=== PATIENT | female | born 1965 | race Caucasian/White ===

== ENCOUNTER 2016-07-28 18:00 | Inpatient (IN) | payer SELFPAY ==
[~2016-07-28] VITALS: Ht 157.5 cm; Wt 39.9 kg
[2016-07-28 18:29] VITALS: BP 90/63
--- NOTE | 2016-07-28 19:45 | NUR ---
PATIENT AMBULATED TO ER BED 5.
--- NOTE | 2016-07-28 19:51 | NUR ---
51Y F PRESENTED TO ER C/O OF SOMETHING PROTRUDING IN RT SIDE OF HER NECK THAT AFFECTS HER SWALLOWING . DENIES PAIN, NO N/V NOTED.
--- NOTE | 2016-07-28 19:55 | NUR ---
Patient being evaluated by physician at bedside.
[2016-07-28] MEDS ORDERED: NACL 0.9% 1,000 ML IV ONE (21:40)
[2016-07-28 22:02] LABS: BASOPHILS % (AUTO) 0.6 % (0.0-2.0); EOSINOPHILS # (AUTO) 0.1 K/uL (0-0.4); EOSINOPHILS % (AUTO) 1.2 % (0.0-4.0); HEMATOCRIT 27.2 % (36-48); HEMOGLOBIN 8.6 g/dL (12.0-16.0); LYMPHOCYTES # (AUTO) 1.4 K/uL (2.5-16.5); LYMPHOCYTES % (AUTO) 25.7 % (20.5-51.1); MEAN CORPUSCULAR HEMOGLOBIN 32 pg (27-31); MEAN CORPUSCULAR HGB CONC 32 g/dL (33-37); MEAN CORPUSCULAR VOLUME 103 fL (80-94); MONOCYTES # (AUTO) 0.1 K/uL (0.8-1.0); MONOCYTES % (AUTO) 1.8 % (1.7-9.3); NEUTROPHILS # (AUTO) 3.8 K/uL (1.8-7.7); NEUTROPHILS % (AUTO) 70.7 % (42.2-75.2); PLATELET COUNT (AUTO) 282 K/uL (140-450); RED BLOOD CELL COUNT(AUTO) 2.65 MIL/uL (4.20-5.40); RED CELL DISTRIBUTION WIDTH 19.3 % (11.6-13.7); WHITE BLOOD COUNT (AUTO) 5.5 K/uL (4.8-10.8)
[2016-07-28 22:13] LABS: ANION GAP 11.6 (8-16); CALCIUM 8.6 mg/dL (8.5-10.1); CARBON DIOXIDE 27.3 mmol/L (21-32); CREATININE 0.5 mg/dL (0.6-1.3); POTASSIUM 3.9 mmol/L (3.5-5.1)
[2016-07-28 22:19] LABS: ALBUMIN 3.1 g/dL (3.4-5.0); TOTAL BILIRUBIN 1.1 mg/dL (0.0-1.0); TOTAL PROTEIN, SERUM 7.2 g/dL (6.4-8.2)
[2016-07-28 22:25] LABS: INR 1.2 (0.8-1.2); PARTIAL THROMBOPLASTIN TIME 28.6 secs (22-35.6); PROTHROMBIN TIME 11.4 secs (10.8-13.4)
[2016-07-29] MEDS ORDERED: ONDANSETRON 4 MG/2 ML VIAL IVP PRN (00:10)
[2016-07-29] MEDS ORDERED: HYDROcodone/APAP 5/325 MG 1 TAB TAB PO PRN (00:10)
[2016-07-29] MEDS ORDERED: ACETAMINOPHEN 325 MG TAB PO PRN (00:10)
[2016-07-29] MEDS: DEXT 5% /NACL 0.9% 1,000 ML IV SCH ×3 (00:10→21:08)
[2016-07-29] MEDS ORDERED: MORPHINE SULFATE 2 MG/ML SYR IVP PRN (00:10)
[2016-07-29] MEDS ORDERED: LORazepam 2 MG/ML VIAL IVP PRN (00:10)
--- NOTE | 2016-07-29 01:00 | NUR ---
RECEIVED FROM ER PER WHEELCHAIR. AWAKE AND ALERT. NO SOB. DENIES PAIN AT THIS TIME. PT. ABLE TO VERBALIZE NEEDS WELL. CARE PLANS DISCUSSED WITH HER AND CALL LIGHT EXPLAINED. IVF SITES TO LAC AND RAC. BOTH INTACT AND NO INFILTRATION NOTED. DX. OF MASS TO RIGHT SIDE OF NECK. AFEBRILE. SKIN INTACT. NO EDEMA .CTAB. PER PT. SHE LOST AROUND 10 LBS. FOR A MONTH NOW. ORIENTED TO ROOM, CARE GIVERS AND CALL LIGHT USE. IVF TO LAC # 22 INTACT AND INFUSING WITH NS AT 100 ML PER HOUR.
--- NOTE | 2016-07-29 01:02 | NUR ---
Patient will be admitted to care of DR SHELTON. Admited to [facility]. Will go to room 120. Belongings list completed. Report to [facility].
[2016-07-29 01:42] VITALS: BP 97/62
--- NOTE | 2016-07-29 02:00 | NUR ---
ORIENTED AND ALERT. REMINDED TO USE CALL LIGHT FOR HELP. "OK" NO SOB. RAPID RESPONSE MECHANISM DISCUSSED WITH HER. SEQUENTIALS BILATERALLY IN PLACE. EXPLAINED PROS AND CONS OF IT.
--- NOTE | 2016-07-29 04:32 | NUR ---
SLEEPING WELL. PT. COMFORTABLE AND NO COMPLAINTS DONE AT THIS TIME. CALL LIGHT WITH IN REACH AT BEDSIDE.
--- NOTE | 2016-07-29 06:47 | NUR ---
PATIENT HAS BEEN SCREENED AND CATEGORIZED HIGH NUTRITION RISK. PATIENT WILL BE SEEN WITHIN 1-2 DAYS OF ADMISSION. 07/29/16-07/30/16 TAMICA BARRETT MS, RDN
--- NOTE | 2016-07-29 07:30 | NUR ---
ENDORSED TO THE NEXT RN FOR CONTINUITY OF CARE. AWAKE AND ALERT. VERBALIZES NEEDS WELL. NO SOB. DENIES PAIN AT THI STIME.
--- NOTE | 2016-07-29 07:31 | NUR ---
RECEIVED SBAR REPORT AT PT BEDSIDE. PT AMBULATORY. DENIES DISCOMFORT. IV SITE PATENT AND INTACT. AAOX4. CALL LIGHT WITHIN REACH. NO S/S OF RESPIRATORY DISTRESS. WILL CONTINUE TO MONITOR.
--- NOTE | 2016-07-29 10:35 | NUR ---
PATIENT SEEN BY DR. SHELTON AT PT BEDSIDE. MD SPOKE WITH PATIENT AND DAUGHTER REGARDING PLAN OF CARE.
--- NOTE | 2016-07-29 12:00 | NUR ---
07/29/16 RD INITIAL ASSESSMENT COMPLETED PLEASE REFER TO NUTRITION ASSESSMENT UNDER CARE ACTIVITY FOR ESTIMATED NUTRITIONAL NEEDS. RD RECOMMENDATIONS: 1. CONTINUE ON REGULAR DIET APPROPRIATE AND TOLERATED PER PT. 2. RD WILL F/U 2-3 DAYS; HIGH RISK. TAMICA BARRETT, MS, RDN
--- NOTE | 2016-07-29 15:08 | NUR ---
DR. ARIAN RUIZ, COVERING FOR DR. STEWART. WILL NOTIFY FOR CONSULTATION AND QUESTIONS PER FAMILY.
[2016-07-29 16:00] VITALS: BP 96/60
[2016-07-29] MEDS ORDERED: ACETAMINOPHEN 650 MG/20.3 ML UDC PO PRN (16:15)
--- NOTE | 2016-07-29 17:00 | NUR ---
PT AMBULATORY TO BATHROOM WITH ASSIST. NO S/S OF ACUTE DISTRESS. WILL CONTINUE TO MONITOR.
[2016-07-29] MEDS: PIPERACILLIN/TAZOBACTAM 4.5 GM in DEXTROSE 5% 100 ML IV SCH (17:35)
--- NOTE | 2016-07-29 19:15 | NUR ---
SBAR REPORT GIVEN TO NIGHT NURSE AT PT BEDSIDE. PT RESTING IN BED. NO S/S OF ACUTE DISTRESS NOTED.
--- NOTE | 2016-07-29 19:17 | NUR ---
PATIENT IS CURRENTLY RESTING IN BED AWAKE ALERT ORIENTED.PATIENT DENIES PAIN AT THIS TIME.PATIENT IS WEARING HER SCD'S TO BOTH LOWER EXTREMITIES.PATIENT DENIES FEELING ANY NAUSEA.IVF INFUSING WELL IV SITE REMAINS PATENT NO INFILTRATION NOTED.CALL LIGHT WITHIN REACH WILL CONTINUE TO MONITOR.
[2016-07-29 20:35] VITALS: BP 90/58
--- NOTE | 2016-07-29 21:00 | NUR ---
Patient's Plan of Care was discussed and reviewed with HEMMING AND TACKING MACHINE OPERATOR: ADALGISA DOMINGUEZ
--- NOTE | 2016-07-29 21:08 | NUR ---
PATIENT IS CURRENTLY RESTING IN BED DENIES PAIN ,IVF INFUSING WELL, IV FOLLOW UP DONE, DENIES N/V WILL CONTINUE TO MONITOR.
--- NOTE | 2016-07-29 22:09 | NUR ---
PATIENT STABLE SLEEPING IN BED NO PAIN OR DISCOMFORT NO DISTRESS WILL CONTINUE TO MONITOR.
[2016-07-30] VITALS: BP 91/55
[2016-07-30] MEDS: PIPERACILLIN/TAZOBACTAM 4.5 GM in DEXTROSE 5% 100 ML IV SCH ×4 (00:09→18:06)
--- NOTE | 2016-07-30 00:34 | NUR ---
PATIENT IS CURRENTLY RESTING IN BED SHE IS AWARE SHE WILL RECEIVE HER ANTIBIOTICS BY [facility] BOOGIE AND I ASSISTED HER TO THE BATHROOM AND BACK TO BED,PATIENT CONTINUES TO HAVE HER SCD'S IN PLACE TO BOTH LOWER EXTREMITIES, AND HER IVF CONTINUES TO INFUSE WELL IV SITE PATENT.WILL CONTINUE TO MONITOR.
--- NOTE | 2016-07-30 01:52 | NUR ---
MD DEL CID CAME AND SAW THE PATIENT.UPDATE GIVEN TO ON PATIENT CURRENT STATUS AND ANTIBIOTICS SHE IS CURRENTLY TAKING.
[2016-07-30] MEDS ORDERED: VANCOMYCIN PER PHARMACY MC PRN ×2 (02:00→02:15)
[2016-07-30] MEDS ORDERED: VANCOMYCIN 1GM/DEXT 5% PREMIX 200 ML IV ONE (02:15)
--- NOTE | 2016-07-30 02:20 | NUR ---
PATIENT HAS NEW ORDER FOR IV ANTIBIOTIC CONDITIONING ROOM WORKER MOMO INFORMED SO SHE CAN PROVIDE ME WITH THE ANTIBIOTIC VANCOMYCIN.
[2016-07-30] MEDS ORDERED: VANCOMYCIN 500 MG VIAL ONE (02:24)
--- NOTE | 2016-07-30 02:32 | NUR ---
PATIENT RECEIVED VANCOMYCIN IV ORDERED BY RN CHUYITA WILL MONITOR FOR ANY ADR.
[2016-07-30] MEDS ORDERED: VANCOMYCIN 750 MG in DEXTROSE 5% 250 ML IV SCH (03:00)
--- NOTE | 2016-07-30 03:00 | NUR ---
PATIENT STABLE NO ADR NOTED FROM [facility] IV ANTIBIOTIC PATIENT SLEEPING WELL.
--- NOTE | 2016-07-30 03:53 | NUR ---
PATIENT SLEEPING QUIETLY IN BED.
[2016-07-30] MEDS: DEXT 5% /NACL 0.9% 1,000 ML IV SCH ×2 (06:10→16:17)
--- NOTE | 2016-07-30 06:32 | NUR ---
PATIENT IS CURRENTLY RESTING IN BED NO COMPLAINS OF PAIN OR DISCOMFORT IVF INFUSING WELL IV SITE PATENT.CALL LIGHT WITHIN REACH.
[2016-07-30 06:45] LABS: BASOPHILS % (AUTO) 0.8 % (0.0-2.0); EOSINOPHILS % (AUTO) 0.8 % (0.0-4.0); HEMOGLOBIN 8.3 g/dL (12.0-16.0); LYMPHOCYTES # (AUTO) 0.4 K/uL (2.5-16.5); LYMPHOCYTES % (AUTO) 9.3 % (20.5-51.1); MEAN CORPUSCULAR HEMOGLOBIN 34 pg (27-31); MEAN CORPUSCULAR HGB CONC 33 g/dL (33-37); MEAN CORPUSCULAR VOLUME 103 fL (80-94); MONOCYTES % (AUTO) 0.5 % (1.7-9.3); NEUTROPHILS # (AUTO) 4.1 K/uL (1.8-7.7); NEUTROPHILS % (AUTO) 88.6 % (42.2-75.2); PLATELET COUNT (AUTO) 217 K/uL (140-450); RED BLOOD CELL COUNT(AUTO) 2.44 MIL/uL (4.20-5.40); RED CELL DISTRIBUTION WIDTH 20.2 % (11.6-13.7); WHITE BLOOD COUNT (AUTO) 4.5 K/uL (4.8-10.8)
[2016-07-30 07:10] LABS: ANION GAP 8.6 (8-16); CALCIUM 7.8 mg/dL (8.5-10.1); CARBON DIOXIDE 28.3 mmol/L (21-32); CREATININE 0.5 mg/dL (0.6-1.3)
[2016-07-30 07:12] LABS: POTASSIUM 2.9 mmol/L (3.5-5.1)
--- NOTE | 2016-07-30 07:20 | NUR ---
RECEIVED PT REPORT AT BEDSIDE FROM NIGHT NURSE. PT IS AAOX4 AND SHOWS NO S/S OF DISTRESS. PT DENIES PAIN. SKIN IS INTACT. IV NOTED ON THE L AC PATENT AND INTACT. BED IS LOWERED, FLAT, AND CALL LIGHT WITHIN REACH. WILL CONTINUE TO MONITOR PT.
--- NOTE | 2016-07-30 07:28 | NUR ---
PT STABLE REPORT ENDORSED TO [facility] WRIGHT AND [facility] JENNINGS THEY WILL RESUME CARE OF THE PATIENT.
[2016-07-30 07:29] LABS: ANISOCYTOSIS 1+
[2016-07-30 07:30] LABS: OVALOCYTES 1+; TEAR DROP CELLS 1+
--- NOTE | 2016-07-30 07:40 | NUR ---
MADE DR SHELTON AWARE OF THE CHANGE IN THE PATIENT'S POTASSIUM LEVEL FROM 3.9 TO 2.9. ORDERS TO REDRAW AND CALL HIM BACK WITH THE NEW RESULT
[2016-07-30 08:00] VITALS: BP 91/54
--- NOTE | 2016-07-30 09:00 | NUR ---
PAGED DR SHELTON TO INFORM HIM ABOUT PATIENT'S K LEVEL OF 2.9 FROM SECOND DRAW.
[2016-07-30] MEDS ORDERED: POTASSIUM CHLORIDE 40 MEQ, LIDOCAINE 1% 25 MG in NACL 0.9% 250 ML IV SCH (10:30)
--- NOTE | 2016-07-30 10:45 | NUR ---
ADMINISTERED SCHEDULED MEDICATIONS. PT IS RESTING IN BED. PT SHOWS NO S/S OF DISTRESS. WILL CONTINUE TO MONITOR.
--- NOTE | 2016-07-30 11:42 | NUR ---
SPOKE WITH DR RECINOS AND INFORMED HIM ABOUT THE CONSULT ORDERED. DR RECINOS TO SEE THE PATIENT
--- NOTE | 2016-07-30 12:20 | NUR ---
SPOKE WITH DR DON AND INFORMED HIM ABOUT THE CONSULT ORDER. DR WASHINGTON SEE THE PATIENT TODAY
--- NOTE | 2016-07-30 13:10 | NUR ---
PATIENT SEEN BY DR DON
--- NOTE | 2016-07-30 13:30 | NUR ---
DISCONTINUED L AC IV CANNULA INTACT. INSERTED IV AT L WRIST 22 GAUGE PATENT AND INTACT.
[2016-07-30] MEDS ORDERED: VANCOMYCIN 500 MG in DEXTROSE 5% 100 ML IV SCH (15:00)
[2016-07-30 16:00] VITALS: BP 96/61
--- NOTE | 2016-07-30 16:00 | NUR ---
PT HAS VISITORS AT BEDSIDE. PT SHOW NO S/S OF DISTRESS. PT IS RESTING IN BED.
[2016-07-30] MEDS: VANCOMYCIN 500 MG in DEXTROSE 5% 100 ML IV SCH (16:02)
--- NOTE | 2016-07-30 17:30 | NUR ---
DISCONTINUED IV ON R AC WITH CANNULA INTACT. REINSERTED IV ON L AC 20 GAUGE. IV PATENT AND INTACT.
--- NOTE | 2016-07-30 19:10 | NUR ---
GAVE REPORT TO NIGHT NURSE AT BEDSIDE. PT ENDORSED IN STABLE CONDITION.
--- NOTE | 2016-07-30 19:18 | NUR ---
SPOKE WITH DR HORNER AND MADE HIM AWARE OF THE CONSULT ORDER FOR THE PATIENT
--- NOTE | 2016-07-30 19:20 | NUR ---
PATIENT IS CURRENTLY AWAKE ALERT ORIENTED RESTING IN BED IVF INFUSING WELL IV SITE PATENT NO INFILTRATION NOTED.FAMILY AT BEDSIDE ASKING WHEN PATIENT WILL HAVE THE CT TEST DONE TONIGHT.I EXPLAINED TO THE PATIENT AND FAMILY THAT THE ANCILLARY SPECIALIST IS AWARE AND SHE WILL COME SOON SHE CAN.PATIENT AND FAMILY INFORMED OF PATIENTS CURRENT PLAN OF CARE AND VERBALIZE UNDERSTANDING.FAMILY AND PATIENT ARE AWARE THAT SOME CONSULTS ARE STILL PENDING.SAFETY PRECAUTIONS IMPLEMENTED.
--- NOTE | 2016-07-30 19:30 | NUR ---
Patient's Plan of Care was discussed and reviewed with [employer] [place] MACHINE TENDER: ADALGISA Ritter
[2016-07-30 20:00] VITALS: BP 94/68
--- NOTE | 2016-07-30 20:22 | NUR ---
PATIENT CAME BACK FROM CT TEST AND BACK TO BED.IVF WAS RESTARTED PATIENT KEPT COMFORTABLE AND WARM BLANKET GIVEN BY SCIENTIFIC AFFAIRS MANAGER.PATIENT NEEDS MET WILL CONTINUE TO MONITOR.CALL LIGHT WITHIN REACH.
--- NOTE | 2016-07-30 21:05 | NUR ---
PATIENT WANTS TO EAT HER SOUP AND I WARMED IT UP FOR HER AND I WARMED UP HER FOOD TRAY.PATIENT IS CONCERNED THAT THE CONSISTENCY OF HER FOOD IS REGULAR BUT SHE IS UNABLE TO SWALLOW THE PIECES OF MEAT AND VEGETABLES PATIENT STATES,"I WOULD RATHER LIKE MY FOOD TO BE PUREE SO I CAN SWALLOW IT BETTER."FOR NOW PATIENT REFUSED HER DINNER TRAY AND IS EATING A SOUP THAT FAMILY BROUGHT FROM HOME.
--- NOTE | 2016-07-30 21:42 | NUR ---
CT REPORT STILL PENDING AT THIS TIME NO RESULTS YET.
[2016-07-31] MEDS: PIPERACILLIN/TAZOBACTAM 4.5 GM in DEXTROSE 5% 100 ML IV SCH ×6 (00:04→23:39)
--- NOTE | 2016-07-31 00:05 | NUR ---
PATIENT IS CURRENTLY RESTING IN BED DENIES PAIN VITAL SIGNS TAKEN B/P 77/46 HR 75 [id number]% B/P RECHECKED B/P 76/50 HR 79 [employer] HAS BEEN CALLED THEY WILL PAGE MD SHELTON.WILL AWAIT FOR TO CALL BACK.
[2016-07-31 00:13] VITALS: BP 77/75
--- NOTE | 2016-07-31 00:13 | NUR ---
CALLED BACK AND HE WAS INFORMED OF B/P 77/46 RECHECKED / PATIENT IS ASYMPTOMATIC AT THIS TIME DENIES DIZZINESS.MD SHELTON GAVE NEW ORDER WILL CARRY NEW ORDER OUT.WILL CONTINUE TO MONITOR THE PATIENT.
[2016-07-31] MEDS ORDERED: NACL 0.9% 1,000 ML IV ONE (00:15)
[2016-07-31 01:00] VITALS: BP 88/55
[2016-07-31] MEDS: VANCOMYCIN 500 MG in DEXTROSE 5% 100 ML IV SCH (01:30)
[2016-07-31] MEDS: DEXT 5% /NACL 0.9% 1,000 ML IV SCH ×3 (01:33→22:10)
[2016-07-31 02:34] VITALS: BP 89/56
--- NOTE | 2016-07-31 02:34 | NUR ---
PATIENT IS RESTING IN BED VANCO IV IS FINISHING INFUSING PATIENT CONTINUES TO GET HER REGULAR IVF WELL. B/P 89/56 PATIENT IS ASYMPTOMATIC DENIES HEADACHE AND DENIES ANY DIZZINESS AT THIS TIME.PATIENT CONTINUES TO BE MONITORED.CALL LIGHT WITHIN REACH.
--- NOTE | 2016-07-31 04:30 | NUR ---
PATIENT STABLE ASSISTED TO THE BATHROOM AND BACK TO BED.
[2016-07-31 06:00] VITALS: BP 96/51
[2016-07-31 06:12] VITALS: BP 96/51
[2016-07-31 06:12] LABS: HEMATOCRIT 23.5 % (36-48); HEMOGLOBIN 7.7 g/dL (12.0-16.0); MEAN CORPUSCULAR HEMOGLOBIN 33 pg (27-31); MEAN CORPUSCULAR HGB CONC 33 g/dL (33-37); MEAN CORPUSCULAR VOLUME 102 fL (80-94); PLATELET COUNT (AUTO) 200 K/uL (140-450); RED CELL DISTRIBUTION WIDTH 21.2 % (11.6-13.7)
--- NOTE | 2016-07-31 06:16 | NUR ---
MD THOMPSON CALLED ME AND HE WAS GIVEN UPDATE OF PATIENTS CONDITION AND HE WAS REMINDED THAT HE HAS A CONSULT FOR THIS PATIENT.HE GAVE NEW ORDERS TO KEEP PATIENT NPO AND OBTAIN CONSENT FOR EGD.WILL MONITOR PATIENT AND WILL ENDORSE TO AM SHIFT NURSE.
--- NOTE | 2016-07-31 06:31 | NUR ---
PATIENT SISTER KALYN WAS INFORMED THAT PATIENT MIGHT BE HAVING A EGD TODAY.
[2016-07-31 06:34] LABS: WHITE BLOOD COUNT (AUTO) 2.9 K/uL (4.8-10.8)
[2016-07-31 06:43] LABS: ANISOCYTOSIS 1+; HYPOCHROMASIA 1+; OVALOCYTES 1+; POIKILOCYTOSIS 1+; SPHEROCYTES 1+
[2016-07-31 06:55] LABS: ALBUMIN 2.1 g/dL (3.4-5.0); ANION GAP 7.5 (8-16); CALCIUM 7.3 mg/dL (8.5-10.1); CARBON DIOXIDE 27.4 mmol/L (21-32); CREATININE 0.4 mg/dL (0.6-1.3); TOTAL BILIRUBIN 0.7 mg/dL (0.0-1.0); TOTAL PROTEIN, SERUM 5.5 g/dL (6.4-8.2)
[2016-07-31 07:17] LABS: POTASSIUM 2.9 mmol/L (3.5-5.1)
--- NOTE | 2016-07-31 07:20 | NUR ---
RECEIVED PT REPORT AT BEDSIDE FROM NIGHT NURSE. PT IS AAOX4 AND SHOWS NO S/S OF DISTRESS. IV NOTED ON THE L AC 20 GAUGE HEPLOCKED AND SECOND IV NOTED ON THE L WRIST 22 GAUGE PATENT AND INTACT WITH IVF RUNNING. NOTED MASS ON THE RIGHT LATERAL AND ANTERIOR OF NECK. PT STATES NO PAIN AT THIS TIME. BED IS LOWERED, FLAT, AND CALL LIGHT WITHIN REACH. WILL CONTINUE TO MONITOR.
--- NOTE | 2016-07-31 07:28 | NUR ---
PATIENT IS CURRENTLY STABLE REPORT ENDORSED AT BEDSIDE TO [facility] WRIGHT AND [place] JENNINGS.
[2016-07-31] MEDS ORDERED: POTASSIUM CHLORIDE 10 MEQ TABER PO SCH (09:00)
[2016-07-31] MEDS ORDERED: POTASSIUM CHLORIDE 40 MEQ, LIDOCAINE 1% 25 MG in NACL 0.9% 250 ML IV SCH (09:00)
[2016-07-31] MEDS ORDERED: POTASSIUM CHLORIDE 20% 40 MEQ/15 ML UDC PO SCH ×2 (09:30→21:00)
--- NOTE | 2016-07-31 09:30 | NUR ---
ADMINISTERED SCHEDULED MEDICATIONS. PT STATED COULD NOT TAKE TABLETS DUE TO TROUBLE SWALLOWING. CHANGED MEDICATION TO LIQUID. PT TOLERATED WELL. WILL CONTINUE TO MONITOR.
--- NOTE | 2016-07-31 10:26 | NUR ---
PT IN BED RESTING. PT SHOWS NO S/S OF DISTRESS.
[2016-07-31] MEDS ORDERED: fentaNYL 0.05 MG/ML VIAL ONE ×2 (10:53→12:15)
[2016-07-31] MEDS ORDERED: MIDAZOLAM 2 MG/2 ML VIAL ONE ×3 (10:53→12:16)
--- NOTE | 2016-07-31 11:57 | NUR ---
PT OFF THE UNIT FOR EGD PROCEDURE. PT IS STABLE SHOWS NO S/S OF DISTRESS. V/S BP 88/56, TEMP: 98.5, SAT 02 100%, RESPIRATIONS 16, HEART RATE: 86. PT DENIES PAIN.
[2016-07-31] MEDS ORDERED: diphenhydrAMINE 50 MG/ML VIAL ONE (12:16)
[2016-07-31] MEDS ORDERED: MIDAZOLAM 2 MG/2 ML VIAL IV ONE (12:30)
[2016-07-31] MEDS ORDERED: fentaNYL 0.05 MG/ML VIAL IVP ONE (12:30)
--- NOTE | 2016-07-31 12:45 | NUR ---
PT RETURNED TO UNIT FROM EGD PROCEDURE. PT BP 88/54, SAT O2 RA 99%, TEMP 98.4, HEART RATE 82, BPM 14, AND DENIES PAIN. PT SHOWS NO S/S OF DISTRESS. WILL CONTINUE TO MONITOR.
--- NOTE | 2016-07-31 15:00 | NUR ---
PT SEEN BY DR. RECINOS.
[2016-07-31] MEDS: VANCOMYCIN 750 MG in DEXTROSE 5% 250 ML IV SCH (15:02)
[2016-07-31 16:00] VITALS: BP 87/53
--- NOTE | 2016-07-31 16:00 | NUR ---
PT AMB TO BATHROOM. PT HAS STEADY GAIT. PT VOIDED. PT SHOWS NO S/S OF DISTRESS. WILL CONTINUE TO MONITOR.
--- NOTE | 2016-07-31 19:00 | NUR ---
GAVE REPORT TO NIGHT NURSE. PT ENDORSED IN STABLE CONDITION.
--- NOTE | 2016-07-31 19:01 | NUR ---
RECEIVED REPORT FROM DAY SHIFT NURSE. PT IS AAOX4, DENIES ANY PAIN. ON ROOM AIR, NO S/S OF RESPIRATORY DISTRESS/DISCOMFORT NOTED. IV SITE IS PATENT, INTACT AND INFUSING WELL. PLAN OF CARE DISCUSSED, VERBALIZED UNDERSTANDING. SAFETY MEASURES CHECKED, CALL LIGHT WITH REACH. WILL CONTINUE TO MONITOR.
--- NOTE | 2016-07-31 20:29 | NUR ---
PT AMBULATED TO REST ROOM. SAFETY MEASURES CHECKED. NO SOB NOTED.
--- NOTE | 2016-07-31 21:15 | NUR ---
RADIOLOGIST AT BEDSIDE FOR ULTRASOUND
[2016-07-31] MEDS: POTASSIUM CHLORIDE 20% 40 MEQ/15 ML UDC PO SCH (21:24)
[2016-08-01] VITALS: BP 89/54
--- NOTE | 2016-08-01 | NUR ---
V/S CHECKED AND STABLE, DENIES PAIN. NO SOB NOTED. CALL LIGHT WITHIN REACH.
[2016-08-01] MEDS: VANCOMYCIN 750 MG in DEXTROSE 5% 250 ML IV SCH (01:40)
--- NOTE | 2016-08-01 02:00 | NUR ---
EYES CLOSED, RESTING QUIETLY BREATHING EVEN AND UNLABORED. CALL LIGHT WITH REACH.
--- NOTE | 2016-08-01 04:26 | NUR ---
PT AWAKE, AMBULATED TO RESTROOM. SAFETY MEASURES CHECKED. NO SOB NOTED
[2016-08-01] MEDS: PIPERACILLIN/TAZOBACTAM 4.5 GM in DEXTROSE 5% 100 ML IV SCH ×3 (05:49→17:44)
[2016-08-01 05:56] LABS: BASOPHILS # (AUTO) 0.1 K/uL (0.00-0.22); EOSINOPHILS % (AUTO) 1.1 % (0.0-4.0); HEMATOCRIT 24.9 % (36-48); HEMOGLOBIN 8.1 g/dL (12.0-16.0); LYMPHOCYTES # (AUTO) 0.9 K/uL (2.5-16.5); LYMPHOCYTES % (AUTO) 34.6 % (20.5-51.1); MEAN CORPUSCULAR HEMOGLOBIN 33 pg (27-31); MEAN CORPUSCULAR HGB CONC 33 g/dL (33-37); MEAN CORPUSCULAR VOLUME 102 fL (80-94); MONOCYTES % (AUTO) 1.5 % (1.7-9.3); NEUTROPHILS # (AUTO) 1.7 K/uL (1.8-7.7); NEUTROPHILS % (AUTO) 60.8 % (42.2-75.2); PLATELET COUNT (AUTO) 221 K/uL (140-450); RED BLOOD CELL COUNT(AUTO) 2.44 MIL/uL (4.20-5.40); RED CELL DISTRIBUTION WIDTH 20.3 % (11.6-13.7)
[2016-08-01 06:16] LABS: ANION GAP 8.7 (8-16); CALCIUM 8.1 mg/dL (8.5-10.1); CARBON DIOXIDE 29.8 mmol/L (21-32); CREATININE 0.4 mg/dL (0.6-1.3); POTASSIUM 3.5 mmol/L (3.5-5.1)
--- NOTE | 2016-08-01 06:34 | NUR ---
PT SLEEPING. NO S/S OF DISTRESS. NO SOB NOTED. CALL LIGHT WITHIN REACH.
[2016-08-01 07:13] LABS: WHITE BLOOD COUNT (AUTO) 2.7 K/uL (4.8-10.8)
[2016-08-01 07:16] LABS: ANISOCYTOSIS 1+; OVALOCYTES 1+; POIKILOCYTOSIS 1+; TEAR DROP CELLS 1+
--- NOTE | 2016-08-01 07:22 | NUR ---
ENDORSED PT TO DAY SHIFT NURSE FOR CONTINUITY OF CARE. PT IN STABLE CONDITION.
--- NOTE | 2016-08-01 07:23 | NUR ---
RECEIVED PT AWAKE LYING ON BED, NO S/S OF DISTRESS NOTED. WITH IV ACCESS ON LEFT AC 20G PATENT AND INTACT. ALSO WITH ANOTHER IV ACCESS ON LEFT FOREARM 22G INFUSING FLUIDS WELL. SKIN IS INTACT. WITH NECK MASS, NO COMPLAINTS OF PAIN. DISCUSSED PLAN OF CARE, PT VERBALIZED UNDERSTANDING. SAFETY PRECAUTIONS ENFORCED. CALL LIGHT WITHIN REACH, WILL CONTINUE TO MONITOR.
[2016-08-01 08:00] VITALS: BP 96/61
[2016-08-01] MEDS: DEXT 5% /NACL 0.9% 1,000 ML IV SCH (08:20)
[2016-08-01] MEDS: POTASSIUM CHLORIDE 20% 40 MEQ/15 ML UDC PO SCH (08:35)
--- NOTE | 2016-08-01 08:35 | NUR ---
DUE POTASSIUM GIVEN, PT VERBALIZED UNDERSTANDING.
--- NOTE | 2016-08-01 08:43 | NUR ---
PT IN THE SHOWER. GAIT IS STEADY. INSTRUCTED TO CALL FOR ASSISTANCE IF NEEDED.
--- NOTE | 2016-08-01 09:14 | NUR ---
Clinical review was faxed to [facility] [phone].
--- NOTE | 2016-08-01 10:21 | NUR ---
PT TRANSFERRED TO ROOM 11B. PT ABLE TO AMBULATE, NO COMPLAINTS AT THIS TIME. WILL CONTINUE TO MONITOR
--- NOTE | 2016-08-01 12:40 | NUR ---
PT LEFT UNIT FOR BIOPSY VIA WHEELCHAIR ACCOMPANIED BY TECH IN STABLE CONDITION
[2016-08-01] MEDS ORDERED: MIDAZOLAM 2 MG/2 ML VIAL ONE (12:45)
[2016-08-01] MEDS ORDERED: fentaNYL 0.05 MG/ML VIAL ONE (12:45)
--- NOTE | 2016-08-01 13:45 | NUR ---
PT BACK TO UNIT FROM BIOPSY, STABLE. ICE PACK APPLIED TO NECK
--- NOTE | 2016-08-01 13:53 | NUR ---
08/01/16 RD FOLLOW UP COMPLETED PLEASE REFER TO NUTRITION PROGRESS NOTE UNDER CARE ACTIVITY FOR ESTIMATED NUTRITION NEEDS. RD RECOMMENDATIONS: 1. CONTINUE OF CLEAR LIQUID DIET TOLERATED. 2. WHEN MEDICALLY APPROPRIATE, CONSIDER ADVANCING DIET TO REGULAR PUREE. 3. RD WILL F/U 3-5 DAYS; MODERATE RISK. JULIANNE BARRIGA RD
[2016-08-01] MEDS ORDERED: VANCOMYCIN 1GM/DEXT 5% PREMIX 200 ML IV SCH (15:00)
--- NOTE | 2016-08-01 15:20 | NUR ---
PT AWAKE SITTING ON BED WITH DAUGHTER AT BEDSIDE. SPOKE TO DR RECINOS REGARDING PT REQUEST TO GO HOME AND FOLLOW UP OUTPATIENT BIOPSY RESULT WILL NOT BE RELEASED RIGHT AWAY. PER DR RECINOS PT CAN GO AND FOLLOW UP WITH PCP AND WITH HOME ANTIBIOTICS. PAGED DR SHELTON REGARDING DISCHARGE. CHARGE NURSE AWARE
[2016-08-01 16:00] VITALS: BP 88/59
--- NOTE | 2016-08-01 17:01 | NUR ---
PT AWAKE WITH DAUGHTER AT BESIDE. NO COMPLAINTS AT THIS TIME. WILL CONTINUE TO MONITOR
--- NOTE | 2016-08-01 18:01 | NUR ---
CHARGE NURSE SPOKE TO DANITA BELLAMY TO BE DISCHARGED AND TO FOLLOW UP WITH DAVID DUKE AND [facility] PCP OUTPATIENT.
--- NOTE | 2016-08-01 19:53 | NUR ---
DISCHARGE INSTRUCTIONS GIVEN, STRESSED IMPORTANCE OF FOLLOW UP APPOINTMENTS, REMOVED ID WRISTBAND AND IV ACCESS, CATHETER TIP INTACT, PT STILL IN ROOM AWAITING FOR PICKUP
--- NOTE | 2016-08-01 20:00 | NUR ---
D/C PT TO HOME VIA PRIVATE CAR WITH FAMILY, NO SC/O PAIN OR RESPIRATORY DISTRESS. INSTRUCTION GIVEN BY AM NURSE.
== END 2016-08-01 20:00 | disposition home or self-care (01) | DRG 815 ==
LOC: MED 18:00 → MTU 07-29 00:15
PROVIDERS: ADMIT Preventive Medicine Preventive Medicine/Occupational Environmental Medicine; ATTEND Preventive Medicine Preventive Medicine/Occupational Environmental Medicine
PROC: 0DB18ZX Excision of Upper Esophagus, Via Natural or Artificial Opening Endoscopic, Diagnostic (ICD-10-PCS; principal; 2016-07-31 11:50)
PROC: 0WB63ZX Excision of Neck, Percutaneous Approach, Diagnostic (ICD-10-PCS; 2016-08-01)
DX: I88.9 Nonspecific lymphadenitis, unspecified (principal); K22.10 Ulcer of esophagus without bleeding; E87.1 Hypo-osmolality and hyponatremia; K22.2 Esophageal obstruction; R13.10 Dysphagia, unspecified; E88.09 Other disorders of plasma-protein metabolism, not elsewhere classified; D72.819 Decreased white blood cell count, unspecified; D64.9 Anemia, unspecified; D25.9 Leiomyoma of uterus, unspecified; N83.201 Unspecified ovarian cyst, right side; E83.51 Hypocalcemia; N70.11 Chronic salpingitis; E87.6 Hypokalemia; Z80.9 Family history of malignant neoplasm, unspecified
CPT/HCPCS: 36415; 70490; 70491; 71010; 71270; 76856; 77012; 80048; 80053; 80202; 84132; 85025; 85610; 85651; 85730; 86140; 87040; 87081; 93005; 99285; J1200; J2001; J2250; J2543; J3010; J3370; J3480; J7030; J7042; J7060; Q0092; Q9967

== ENCOUNTER 2016-08-13 11:57 | Emergency (ER) | payer MEDICAID, OTHER ==
[~2016-08-13] VITALS: Ht 157.5 cm; Wt 38.6 kg
[2016-08-13 12:24] VITALS: BP 109/86
--- NOTE | 2016-08-13 12:34 | NUR ---
Patient ambulated to bed 03.
--- NOTE | 2016-08-13 12:41 | NUR ---
51/F TO ED WITH C/O THROAT DISCOMFORT X2 DAYS. PT STATES SHE HAS TROUBLE BREATHING AND SWALLOWING. LUNGS CLEAR BILAT. DENIES PAIN. DENIES N/V/D. NEWLY DIAGNOSED THROAT CANCER. HR EVEN AND REGULAR. AAOX4. VSS. NO SIGNS OF DISTRESS.
[2016-08-13] MEDS ORDERED: NACL 0.9% 1,000 ML IV SCH (12:46)
--- NOTE | 2016-08-13 12:47 | NUR ---
PA student at bedside evaluating patient.
[2016-08-13] MEDS ORDERED: FAMOTIDINE 20 MG/2 ML VIAL IVP ONE (12:50)
[2016-08-13] MEDS ORDERED: ONDANSETRON 4 MG/2 ML VIAL IVP ONE (12:50)
[2016-08-13] MEDS ORDERED: IPRATROPIUM 0.02% 0.5 MG/2.5 ML NEBU INH ONE (12:50)
[2016-08-13] MEDS ORDERED: ALBUTEROL 0.083% 2.5 MG/3 ML NEBU INH ONE (12:50)
--- NOTE | 2016-08-13 13:10 | NUR ---
LAB at bedside.
--- NOTE | 2016-08-13 13:19 | NUR ---
RT at bedside to give patient breathing treatment.
--- NOTE | 2016-08-13 14:12 | NUR ---
Patient appears to be resting comfortably in bed. Vital Signs within normal limits. Respirations even and unlabored.
[2016-08-13 15:22] VITALS: BP 115/91
--- NOTE | 2016-08-13 15:23 | NUR ---
Patient discharged with v/s stable. Written and verbal after care instructions given and explained. Patient verbalized understanding. Ambulatory with steady gait. All questions addressed prior to discharge. Advised to follow up with PMD.
== END 2016-08-13 15:23 | disposition home or self-care (01) ==
LOC: MED 11:58
DX: R13.10 Dysphagia, unspecified (principal); C15.9 Malignant neoplasm of esophagus, unspecified; D64.9 Anemia, unspecified
CPT/HCPCS: 36415; 71010; 80053; 81001; 82150; 82553; 83690; 83880; 84484; 85025; 85610; 85730; 94640; 96361; 96374; 96375; 99285; J2405; J3490; J7030; J7613; J7644; Q0092